=== PATIENT | male | born 2000 | race Caucasian/White ===

== ENCOUNTER 2019-04-16 13:17 | Emergency (ER) | payer BC, OTHER ==
[~2019-04-16] VITALS: Ht 188 cm; Wt 77.3 kg
[2019-04-16] MEDS ORDERED: lamoTRIgine 100mg tablet PO STA (13:28)
[2019-04-16] MEDS ORDERED: levetiracetam-NS 1000mg/100ml 100 ML IV STA (13:28)
[2019-04-16] MEDS ORDERED: normal saline 1000ML IV soln IVB ONE (13:30)
[2019-04-16] MEDS ORDERED: LAMO100T2 PO (13:44)
[2019-04-16 14:32] VITALS: BP 128/58
== END 2019-04-16 14:34 | disposition home or self-care (01) ==
LOC: ER 13:17
DX: G40.909 Epilepsy, unspecified, not intractable, without status epilepticus (principal); Z79.899 Other long term (current) drug therapy
CPT/HCPCS: 96374; 99283; J1953; J7030